=== PATIENT | female | born 1955 | race Asian ===

== ENCOUNTER 2022-06-29 08:49 | Day surgery (SDC) | payer OTHER ==
[2022-06-26 12:05] VITALS: BMI 23.1
[2022-06-29 09:17] VITALS: RESP 18; TEMP 98
[2022-06-29 12:13] VITALS: BP 119/67; PULSE 69
== END 2022-06-29 12:00 | disposition home or self-care (01) ==
LOC: FASU-ENDO 08:49
PROVIDERS: ATTEND Internal Medicine Gastroenterology
PROC: 0DJD8ZZ Inspection of Lower Intestinal Tract, Via Natural or Artificial Opening Endoscopic (ICD-10-PCS; principal; 2022-06-29 11:04)
DX: Z12.11 Encounter for screening for malignant neoplasm of colon (principal)